=== PATIENT | female | born 1970 | race Caucasian/White ===

== ENCOUNTER 2021-02-01 22:07 | Emergency (ER) | payer MEDICAID ==
[~2021-02-01] VITALS: Ht 175.3 cm; Wt 137.0 kg
[2021-02-02 00:48] LABS: BASOPHILS % 0.7 % (0.0-2.0); EOSINOPHILS % 0.5 % (0.0-5.0); HEMATOCRIT. 41.8 % (36.0-48.0); HEMOGLOBIN. 13.3 g/dL (12.0-16.0); LYMPHOCYTES % 27.5 % (20.0-50.0); MEAN CORPUSCULAR HEMOGLOBIN 26.3 pg (28.0-32.0); MEAN CORPUSCULAR VOLUME 82.3 fL (81.0-99.0); MEAN PLATELET VOLUME 11.5 fl (7.4-10.4); MONOCYTES % 6.7 % (2.0-8.0); NEUTROPHILS % 64.6 % (40.0-76.0); PLATELET 290 x1000/uL (130-400); RED BLOOD CELL COUNT 5.08 mill/uL (4.2-5.4); RED CELL DISTRIBUTION WIDTH 15.8 % (11.6-14.6)
[2021-02-02 00:53] LABS: CHLORIDE 95 mEq/L (98-107)
[2021-02-02 00:57] LABS: PROTHROMBIN TIME 10.7 sec (9.6-11.0)
[2021-02-02] MEDS ORDERED: SODIUM CHLORIDE 0.9% 1,000 ML IV ONE ×2 (01:15→01:45)
[2021-02-02] MEDS ORDERED: INSULIN REGULAR (HUMULIN R) 300UNITS/3ML VIAL SUBCUT NR (01:45)
[2021-02-02] MEDS ORDERED: IOHEXOL-300 100 ML BOTTLE ONE (03:17)
[2021-02-02 03:31] LABS: CLARITY URINE CLEAR (CLEAR); COLOR URINE YELLOW (YELLOW); KETONES URINE NEGATIVE (NEGATIVE); LEUKOCYTE ESTERASE URINE NEGATIVE (NEGATIVE); NITRITE URINE NEGATIVE (NEGATIVE); OCCULT BLOOD URINE NEGATIVE (NEGATIVE); PROTEIN URINE NEGATIVE (NEGATIVE); SPECIFIC GRAVITY URINE 1.035 (1.005-1.030); UROBILINOGEN URINE 0.2 E.U./dL (0.2-1.0)
[2021-02-02 04:00] VITALS: BP 151/85
[2021-02-02] MEDS ORDERED: METF-414 MT (04:03)
[2021-02-02] MEDS ORDERED: INSULIN REGULAR (HUMULIN R) 300UNITS/3ML VIAL SUBCUT ONE (04:45)
== END 2021-02-02 05:40 | disposition home or self-care (01) ==
LOC: ER 22:07
DX: R73.9 Hyperglycemia, unspecified (principal); I10 Essential (primary) hypertension; E78.00 Pure hypercholesterolemia, unspecified; R93.89 Abnormal findings on diagnostic imaging of other specified body structures; R42 Dizziness and giddiness
CPT/HCPCS: 36415; 71045; 74177; 76830; 76856; 80053; 81003; 82962; 83690; 84443; 84484; 85025; 85610; 93005; 96360; 96372; 99285; J1815; J7030; Q9967

== ENCOUNTER 2021-03-01 00:07 | Emergency (ER) | payer MEDICAID ==
[~2021-03-01] VITALS: Ht 162.6 cm; Wt 114.0 kg
[~2021-03-01 00:07] MED LIST: METF-414 MT
[2021-03-01 00:44] LABS: BASOPHILS % 0.8 % (0.0-2.0); EOSINOPHILS % 2.9 % (0.0-5.0); HEMATOCRIT. 34.8 % (36.0-48.0); HEMOGLOBIN. 11.8 g/dL (12.0-16.0); MEAN CORPUSCULAR HEMOGLOBIN 27.4 pg (28.0-32.0); MEAN CORPUSCULAR VOLUME 81.1 fL (81.0-99.0); MEAN PLATELET VOLUME 10.4 fl (7.4-10.4); MONOCYTES % 6.7 % (2.0-8.0); NEUTROPHILS % 58.6 % (40.0-76.0); PLATELET 258 x1000/uL (130-400); RED BLOOD CELL COUNT 4.29 mill/uL (4.2-5.4)
[2021-03-01] MEDS ORDERED: ASPIRIN 81MG TABLET PO ONE (00:45)
[2021-03-01 00:48] LABS: CHLORIDE 105 mEq/L (98-107)
[2021-03-01 01:14] LABS: *BARBITURATES SCREEN URINE NEGATIVE (NEGATIVE); *BENZODIAZEPINES SCREEN URINE NEGATIVE (NEGATIVE); METHADONE URINE SCREEN NEGATIVE (NEGATIVE); OPIATES URINE SCREEN NEGATIVE (NEGATIVE); PHENCYCLIDINE URINE SCREEN NEGATIVE (NEGATIVE)
[2021-03-01 01:15] LABS: *AMPHETAMINES SCREEN URINE NEGATIVE (NEGATIVE); *COCAINE SCREEN URINE NEGATIVE (NEGATIVE); CANNABINOID URINE SCREEN NEGATIVE (NEGATIVE)
[2021-03-01 01:19] LABS: HCG SCREEN NEGATIVE
[2021-03-01] MEDS ORDERED: POTASSIUM CHLORIDE 20MEQ TABLET SR PO NR (02:15)
[2021-03-01 03:54] VITALS: BP 135/77
[2021-03-01] MEDS ORDERED: POTA20TA82 MT (03:58)
== END 2021-03-01 04:20 | disposition home or self-care (01) ==
LOC: ER 00:07
DX: R07.9 Chest pain, unspecified (principal); I10 Essential (primary) hypertension; E87.6 Hypokalemia; E78.00 Pure hypercholesterolemia, unspecified; F41.9 Anxiety disorder, unspecified; E66.9 Obesity, unspecified; Z68.41 Body mass index [BMI] 40.0-44.9, adult
CPT/HCPCS: 36415; 71045; 80053; 80305; 83880; 84484; 84703; 85025; 93005; 99285; Z7610

== ENCOUNTER 2021-06-29 00:16 | Emergency (ER) | payer MEDICAID, OTHER ==
[~2021-06-29] VITALS: Ht 167.6 cm; Wt 127.0 kg
[~2021-06-29 00:16] MED LIST changes: +POTA20TA82 MT
[2021-06-29 01:40] LABS: BASOPHILS % 0.4 % (0.0-2.0); EOSINOPHILS % 0.9 % (0.0-5.0); HEMATOCRIT. 35.4 % (36.0-48.0); HEMOGLOBIN. 12.1 g/dL (12.0-16.0); LYMPHOCYTES % 17.9 % (20.0-50.0); MEAN CORPUSCULAR HEMOGLOBIN 30.2 pg (28.0-32.0); MEAN CORPUSCULAR VOLUME 88.4 fL (81.0-99.0); MEAN PLATELET VOLUME 11.3 fl (7.4-10.4); NEUTROPHILS % 72.8 % (40.0-76.0); PLATELET 183 x1000/uL (130-400); RED BLOOD CELL COUNT 4.01 mill/uL (4.2-5.4); RED CELL DISTRIBUTION WIDTH 14.9 % (11.6-14.6)
[2021-06-29 01:42] LABS: CHLORIDE 110 mEq/L (98-107)
[2021-06-29] MEDS ORDERED: KETOROLAC 30MG/ML VIAL IM ONE (03:00)
[2021-06-29 06:00] VITALS: BP 132/63
[2021-06-29] MEDS ORDERED: KETO10TA2 MT (06:29)
== END 2021-06-29 06:55 | disposition home or self-care (01) ==
LOC: ER 00:16
DX: G47.30 Sleep apnea, unspecified (principal); E11.9 Type 2 diabetes mellitus without complications; E78.00 Pure hypercholesterolemia, unspecified; I10 Essential (primary) hypertension; Z98.890 Other specified postprocedural states
CPT/HCPCS: 36415; 71045; 80048; 83880; 84484; 85025; 93005; 94660; 96372; 99285; J1885

== ENCOUNTER 2025-01-02 00:18 | Emergency (ER) | payer MEDICAID, OTHER ==
[~2025-01-02] VITALS: Ht 170.2 cm; Wt 130.0 kg
[~2025-01-02 00:18] MED LIST changes: +KETO10TA2 MT; +POTA-204 MT; -POTA20TA82 MT
[2025-01-02 00:22] VITALS: TEMP 36.7; O2SAT 97
[2025-01-02 02:08] LABS: CHLORIDE 103 mEq/L (98-107); POTASSIUM 3.8 mEq/L (3.5-5.1); SODIUM 138 mEq/L (136-145)
[2025-01-02 02:09] LABS: CALCIUM 9.4 mg/dL (8.7-10.4); CARBON DIOXIDE 24 mEq/L (21-32)
[2025-01-02 02:14] LABS: CREATININE 0.6 mg/dL (0.6-1.0); GLUCOSE 220 mg/dL (70-105); UREA NITROGEN BLOOD 11 mg/dL (9-23)
[2025-01-02 02:19] LABS: BASOPHILS % 0.6 % (0.0-2.0); DIFFERENTIAL COMMENT 0; EOSINOPHILS % 3.3 % (0.0-5.0); HEMATOCRIT. 39.4 % (36.0-48.0); HEMOGLOBIN. 13.5 g/dL (12.0-16.0); LYMPHOCYTES % 30.5 % (20.0-50.0); MEAN CORPUSCULAR HEMOGLOBIN 30.3 pg (28.0-32.0); MEAN CORPUSCULAR HGB CONC 34.3 g/dL (31.0-37.0); MEAN CORPUSCULAR VOLUME 88.4 fL (81.0-99.0); MEAN PLATELET VOLUME 11.5 fl (7.4-10.4); MONOCYTES % 6.4 % (2.0-8.0); NEUTROPHILS % 59.2 % (40.0-76.0); PLATELET 236 x1000/uL (130-400); RED BLOOD CELL COUNT 4.46 mill/uL (4.2-5.4); RED CELL DISTRIBUTION WIDTH 13.6 % (11.6-14.6); WHITE BLOOD COUNT 9.2 x1000/uL (4.5-11.0)
[2025-01-02 02:23] LABS: TROPONIN I HIGH SENSITIVITY < 4 ng/L (3.0-34)
[2025-01-02] MEDS: NITROGLYCERIN 0.4MG TABLET SL SL ONE (02:52)
[2025-01-02] MEDS ORDERED: ACETAMINOPHEN 325MG TABLET PO PRN ×2 (03:15)
[2025-01-02] MEDS ORDERED: MAGNESIUM HYDROXIDE 400MG/5ML 30ML UDC PO PRN (03:15)
[2025-01-02] MEDS ORDERED: DEXTROSE 50% WATER 50ML SYRINGE IV PRN (03:15)
[2025-01-02] MEDS ORDERED: GUAIFENESIN 200MG/10ML SUGAR FREE UDC PO PRN (03:15)
[2025-01-02] MEDS ORDERED: ONDANSETRON HCL 4MG TABLET PO PRN (03:15)
[2025-01-02] MEDS ORDERED: ACETAMINOPHEN WITH CODEINE 300/30MG TABLET PO PRN (03:15)
[2025-01-02] MEDS ORDERED: MORPHINE SULFATE 2 MG/ML INJ (NOT FOR IM USE) IV PRN (03:15)
[2025-01-02] MEDS ORDERED: NITROGLYCERIN 0.4MG TABLET SL SL PRN (03:15)
[2025-01-02 04:22] LABS: TROPONIN I HIGH SENSITIVITY < 4 ng/L (3.0-34)
[2025-01-02] MEDS: INSULIN LISPRO 100 UNITS/ML SUBCUT SCH (08:20)
[2025-01-02] MEDS: BLOOD SUGAR DIAGNOSTIC STRIP TEST SCH (08:48)
[2025-01-02] MEDS: HEPARIN 5000 UNITS/ML VIAL SUBCUT SCH (10:10)
[2025-01-02 11:49] LABS: TROPONIN I HIGH SENSITIVITY < 4 ng/L (3.0-34)
[2025-01-02] MEDS: FAMOTIDINE 20MG TABLET PO SCH (12:11)
[2025-01-02] MEDS: ASPIRIN 81MG TABLET PO SCH (12:11)
[2025-01-02 15:36] VITALS: BP 113/72; PULSE 73; RESP 18; O2SAT 96
[2025-01-02] MEDS ORDERED: GEMFIBROZIL 600MG TABLET PO SCH (17:00)
[2025-01-02] MEDS ORDERED: ATORVASTATIN CALCIUM 40MG TABLET PO SCH (21:00)
[2025-01-02] MEDS ORDERED: METOPROLOL TARTRATE 25MG TABLET PO SCH (21:00)
== END 2025-01-02 15:38 | disposition left against medical advice (07) ==
LOC: ER 00:54
DX: R07.89 Other chest pain (principal); E11.9 Type 2 diabetes mellitus without complications; G47.33 Obstructive sleep apnea (adult) (pediatric); E78.00 Pure hypercholesterolemia, unspecified; I10 Essential (primary) hypertension; E66.9 Obesity, unspecified; Z68.42 Body mass index [BMI] 45.0-49.9, adult; Z79.82 Long term (current) use of aspirin; Z79.84 Long term (current) use of oral hypoglycemic drugs; Z79.899 Other long term (current) drug therapy
CPT/HCPCS: 80048; 82962; 83036; 83880; 85025; 85379; 84484; 36415; 71045; 93970; 96372; 99285; Z7610; J1644; J1815